=== PATIENT | female | born 1955 | race Caucasian/White ===

== ENCOUNTER 2016-08-16 15:46 | Emergency (ER) | payer OTHER ==
[~2016-08-16] VITALS: Ht 162.6 cm; Wt 113.6 kg
[~2016-08-16 15:46] MED LIST: ACET-2902 PO; BISA10S PR; CARB200T6 PO; DSS100 PO; FAMO20 PO; HEP5KI SQ; HYDR-3965 PO; LACO50TA2 PO; LEVE250T55 PO; LEVO100T13 PO; LEVO25VI4 IV; LEVO750P3 IV; LORA2I IM; MOM30 PO; MORP2CAR IV; ONDA22I IVP; OXYB5XL PO; PANT40TA25 PO; QUET25TA PO; VANC1IV IV; ZOLP5 PO
[2016-08-16 16:28] VITALS: BP 134/94
[2016-08-16 16:31] LABS: GLUCOSE,POINT OF CARE 152 MG/DL (70-110)
[2016-08-16 16:35] LABS: BASOPHILS % (AUTO) 0.2 % (0.0-2.0); EOSINOPHILS % (AUTO) 0.4 % (1.0-6.0); HEMATOCRIT 37.3 % (36-46); HEMOGLOBIN 12.2 g/dL (12.0-16.0); LYMPHOCYTES # (AUTO) 2.2 K/uL (1.0-4.8); LYMPHOCYTES % (AUTO) 19.9 % (22.0-44.0); MEAN CORPUSCULAR HEMOGLOBIN 28.1 pg (26.0-34.0); MEAN CORPUSCULAR HGB CONC 32.6 G/dL (31.0-37.0); MEAN CORPUSCULAR VOLUME 86 fL (80-100); MONOCYTES # (AUTO) 0.9 K/uL (0.1-1.0); NEUTROPHILS # (AUTO) 7.9 K/uL (1.8-7.7); NEUTROPHILS % (AUTO) 71.5 % (40.0-70.0); PLATELET COUNT (AUTO) 256 K/uL (150-450); RED BLOOD CELL COUNT(AUTO) 4.32 MIL/uL (4.00-5.20); RED CELL DISTRIBUTION WIDTH 13.4 % (11.5-14.5); WHITE BLOOD COUNT (AUTO) 11.1 K/uL (4.5-11.0)
[2016-08-16 16:39] LABS: ANION GAP 8 mmol/L (8-16); CALCIUM, TOTAL 8.8 mg/dL (8.8-10.5); CARBON DIOXIDE 29 mmol/L (22-29); CHLORIDE 103 mmol/L (98-107); GLOMERULAR FILTR. RATE CALC > 60 mL/min (>60); POTASSIUM 3.8 mmol/L (3.5-5.1); SODIUM SERUM 140 mmol/L (136-145); UREA NITROGEN, BLOOD 12 mg/dL (7-18)
[2016-08-16 16:44] LABS: ALANINE AMINOTRANSFERASE 18 U/L (12-78); ALBUMIN 3.2 g/dL (3.4-5.0); ASPARTATE AMINOTRANSFERASE 11 U/L (15-37); BILIRUBIN,TOTAL 0.1 mg/dL (0.1-1.0); TOTAL PROTEIN, SERUM 7.8 g/dL (6.4-8.2)
[2016-08-16] MEDS ORDERED: LevETIRAcetam 500 MG TABLET PO ONE (17:00)
== END 2016-08-16 19:01 | disposition home or self-care (01) ==
LOC: EDBD → EMS 15:47
DX: G40.909 Epilepsy, unspecified, not intractable, without status epilepticus (principal); E78.00 Pure hypercholesterolemia, unspecified; E03.9 Hypothyroidism, unspecified
CPT/HCPCS: 82948; 82962; 99285

== ENCOUNTER 2016-08-16 20:49 | Emergency (ER) | payer OTHER ==
[~2016-08-16] VITALS: Ht 157.5 cm; Wt 118.2 kg
[2016-08-16 23:22] VITALS: BP 136/81
== END 2016-08-16 23:39 | disposition home or self-care (01) ==
LOC: EDBD → EMS 20:53
DX: S01.81XA Laceration without foreign body of other part of head, initial encounter (principal); E78.00 Pure hypercholesterolemia, unspecified; E03.9 Hypothyroidism, unspecified; W18.09XA Striking against other object with subsequent fall, initial encounter; Y93.89 Activity, other specified; Y92.89 Other specified places as the place of occurrence of the external cause; Y99.8 Other external cause status
CPT/HCPCS: 12001; 70450; 99284

== ENCOUNTER 2016-08-17 09:05 | Emergency (ER) | payer OTHER ==
[~2016-08-17] VITALS: Ht 170.2 cm; Wt 136.4 kg
[~2016-08-17 09:05] MED LIST changes: -LEVO25VI4 IV
[2016-08-17 09:26] LABS: GLUCOSE,POINT OF CARE 159 MG/DL (70-110)
[2016-08-17] MEDS ORDERED: SODIUM CHLORIDE 0.9% 1,000 ML IV ONE (09:30)
[2016-08-17 10:07] LABS: EOSINOPHILS % (AUTO) 0 % (1.0-6.0); HEMATOCRIT 37.1 % (36-46); LYMPHOCYTES % (AUTO) 8.9 % (22.0-44.0); MEAN CORPUSCULAR HGB CONC 32.5 G/dL (31.0-37.0); MEAN CORPUSCULAR VOLUME 86 fL (80-100); MONOCYTES # (AUTO) 0.5 K/uL (0.1-1.0); MONOCYTES % (AUTO) 5.1 % (2.0-9.0); NEUTROPHILS # (AUTO) 9.2 K/uL (1.8-7.7); PLATELET COUNT (AUTO) 257 K/uL (150-450); RED CELL DISTRIBUTION WIDTH 13.5 % (11.5-14.5); WHITE BLOOD COUNT (AUTO) 10.7 K/uL (4.5-11.0)
[2016-08-17 10:17] LABS: ANION GAP 14 mmol/L (8-16); CALCIUM, TOTAL 8.8 mg/dL (8.8-10.5); CARBON DIOXIDE 24 mmol/L (22-29); CHLORIDE 104 mmol/L (98-107); CREATININE 0.79 mg/dL (0.60-1.30); GLOMERULAR FILTR. RATE CALC > 60 mL/min (>60); POTASSIUM 4.3 mmol/L (3.5-5.1); SODIUM SERUM 142 mmol/L (136-145); UREA NITROGEN, BLOOD 12 mg/dL (7-18)
[2016-08-17 10:23] LABS: ALANINE AMINOTRANSFERASE 19 U/L (12-78); ALBUMIN 3.4 g/dL (3.4-5.0); ASPARTATE AMINOTRANSFERASE 14 U/L (15-37); BILIRUBIN,TOTAL 0.2 mg/dL (0.1-1.0); TOTAL PROTEIN, SERUM 7.4 g/dL (6.4-8.2)
[2016-08-17 10:59] LABS: RBC MORPHOLOGY COMMENT NORMAL RBC MORPH
[2016-08-17] MEDS ORDERED: LevETIRAcetam 500 MG in DEXTROSE 5%-WATER 100 ML IV ONE (12:45)
[2016-08-17 14:14] VITALS: BP 132/65
== END 2016-08-17 15:24 | disposition home or self-care (01) ==
LOC: EDBD 09:07 → EMS 09:07
DX: G40.909 Epilepsy, unspecified, not intractable, without status epilepticus (principal); S00.81XA Abrasion of other part of head, initial encounter; E03.9 Hypothyroidism, unspecified; E78.00 Pure hypercholesterolemia, unspecified; W18.39XA Other fall on same level, initial encounter; Y93.89 Activity, other specified; Y92.89 Other specified places as the place of occurrence of the external cause; Y99.8 Other external cause status
CPT/HCPCS: 36415; 70450; 70486; 72125; 80053; 80307; 82948; 82962; 83690; 84484; 85025; 96360; 96365; 99285; G0480; J0712; J7030; J7060

== ENCOUNTER 2016-08-17 17:33 | Inpatient (IN) | payer OTHER ==
[~2016-08-17] VITALS: Ht 162.6 cm; Wt 119.1 kg
[2016-08-17] MEDS ORDERED: LORazepam 2 MG/ML VIAL IM ONE ×2 (20:00→22:45)
[2016-08-17] MEDS ORDERED: LevETIRAcetam 1,000 MG in DEXTROSE 5%-WATER 100 ML IV ONE (22:00)
[2016-08-17 22:28] LABS: ANION GAP 14 mmol/L (8-16); CARBON DIOXIDE 22 mmol/L (22-29); CHLORIDE 105 mmol/L (98-107); CREATININE 0.75 mg/dL (0.60-1.30); GLOMERULAR FILTR. RATE CALC > 60 mL/min (>60); SODIUM SERUM 141 mmol/L (136-145); UREA NITROGEN, BLOOD 14 mg/dL (7-18)
[2016-08-17 22:32] LABS: BASOPHILS % (AUTO) 0.5 % (0.0-2.0); EOSINOPHILS % (AUTO) 0.1 % (1.0-6.0); HEMOGLOBIN 11.6 g/dL (12.0-16.0); LYMPHOCYTES # (AUTO) 3.5 K/uL (1.0-4.8); MEAN CORPUSCULAR HEMOGLOBIN 27.8 pg (26.0-34.0); MEAN CORPUSCULAR HGB CONC 32.1 G/dL (31.0-37.0); MEAN CORPUSCULAR VOLUME 87 fL (80-100); MONOCYTES # (AUTO) 1.1 K/uL (0.1-1.0); MONOCYTES % (AUTO) 7.8 % (2.0-9.0); NEUTROPHILS % (AUTO) 67.6 % (40.0-70.0); PLATELET COUNT (AUTO) 294 K/uL (150-450); RED BLOOD CELL COUNT(AUTO) 4.15 MIL/uL (4.00-5.20); RED CELL DISTRIBUTION WIDTH 13.4 % (11.5-14.5); WHITE BLOOD COUNT (AUTO) 14.8 K/uL (4.5-11.0)
[2016-08-17 22:34] LABS: ALANINE AMINOTRANSFERASE 18 U/L (12-78); ALBUMIN 3.2 g/dL (3.4-5.0); ASPARTATE AMINOTRANSFERASE 18 U/L (15-37); BILIRUBIN,TOTAL 0.1 mg/dL (0.1-1.0); TOTAL PROTEIN, SERUM 7.8 g/dL (6.4-8.2)
[2016-08-17] MEDS ORDERED: DIAZEPAM 5 MG/ML 2 ML SYRINGE IVP ONE (22:45)
[2016-08-17] MEDS ORDERED: ACETAMINOPHEN 325 MG TABLET PO PRN (23:45)
[2016-08-17] MEDS ORDERED: MAGNESIUM HYDROXIDE SUSPENSION 30 ML UDCUP PO PRN (23:45)
[2016-08-17] MEDS ORDERED: ONDANSETRON HCL 4 MG/2 ML VIAL IVP PRN (23:45)
[2016-08-17] MEDS ORDERED: OxyCODONE HCL/ACETAMINOPHEN 5-325 MG TABLET PO PRN (23:45)
[2016-08-17] MEDS ORDERED: BISACODYL 10 MG RECTAL RECTAL SUPPOSITORY PR PRN (23:45)
[2016-08-18] MEDS: HEPARIN SODIUM,PORCINE 5,000 UNITS/ML VIAL SQ SCH ×3 (00:23→16:20)
[2016-08-18] MEDS ORDERED: DIAZEPAM 5 MG/ML 2 ML SYRINGE IVP ONE (07:00)
[2016-08-18] MEDS: PANTOPRAZOLE SODIUM 40 MG DR TABLET PO SCH (08:39)
[2016-08-18 17:06] LABS: GLUCOSE,POINT OF CARE 102 MG/DL (70-110)
[2016-08-18] MEDS ORDERED: 0.9% SODIUM CHLORIDE 10 ML SYRINGE IVP PRN (17:45)
[2016-08-18 17:49] VITALS: BP 105/75
[2016-08-18 19:20] VITALS: BP 126/63
[2016-08-18 21:45] VITALS: BP 136/60
[2016-08-18] MEDS: LORazepam 2 MG/ML VIAL IVP PRN (21:53)
[2016-08-18] MEDS ORDERED: LevETIRAcetam 1,000 MG in DEXTROSE 5%-WATER 100 ML IV ONE (22:00)
[2016-08-18 23:55] VITALS: BP 116/61
[2016-08-19] MEDS: HEPARIN SODIUM,PORCINE 5,000 UNITS/ML VIAL SQ SCH ×4 (00:09→23:35)
[2016-08-19 04:07] VITALS: BP 102/50
[2016-08-19 08:08] VITALS: BP 117/57
[2016-08-19] MEDS: LevETIRAcetam 500 MG TABLET PO SCH ×2 (08:11→20:12)
[2016-08-19] MEDS: PANTOPRAZOLE SODIUM 40 MG DR TABLET PO SCH (08:11)
[2016-08-19 10:49] VITALS: BP 105/72
[2016-08-19 16:14] VITALS: BP 129/84
[2016-08-19 20:41] VITALS: BP 122/71
[2016-08-20] VITALS (7 sets, daily range): BP systolic 98–130; BP diastolic 58–86
[2016-08-20] MEDS: LORazepam 2 MG/ML VIAL IVP PRN (01:45)
[2016-08-20] MEDS: LevETIRAcetam 500 MG TABLET PO SCH ×2 (08:10→20:50)
[2016-08-20] MEDS: HEPARIN SODIUM,PORCINE 5,000 UNITS/ML VIAL SQ SCH ×3 (08:10→23:55)
[2016-08-20] MEDS: PANTOPRAZOLE SODIUM 40 MG DR TABLET PO SCH (08:11)
[2016-08-20] MEDS ORDERED: LEVE500T53 PO (10:18)
[2016-08-21 00:31] VITALS: BP 111/63
[2016-08-21 04:39] VITALS: BP 124/64
[2016-08-21 07:04] VITALS: BP 101/65
[2016-08-21] MEDS: PANTOPRAZOLE SODIUM 40 MG DR TABLET PO SCH (08:27)
[2016-08-21] MEDS: LevETIRAcetam 500 MG TABLET PO SCH (08:27)
[2016-08-21] MEDS: HEPARIN SODIUM,PORCINE 5,000 UNITS/ML VIAL SQ SCH (08:27)
[2016-08-21 10:45] VITALS: BP 108/67
== END 2016-08-21 11:45 | disposition home or self-care (01) | DRG 53 ==
LOC: EMS 17:36 → 5N 08-18 16:53
PROVIDERS: ADMIT Hospitalist; ATTEND Hospitalist
PROC: 4A10X4Z Monitoring of Central Nervous Electrical Activity, External Approach (ICD-10-PCS; principal; 2016-08-20)
DX: G40.401 Other generalized epilepsy and epileptic syndromes, not intractable, with status epilepticus (principal); E44.1 Mild protein-calorie malnutrition; I10 Essential (primary) hypertension; Z68.42 Body mass index [BMI] 45.0-49.9, adult; E03.9 Hypothyroidism, unspecified; S00.81XA Abrasion of other part of head, initial encounter; E66.9 Obesity, unspecified; E78.5 Hyperlipidemia, unspecified; Z90.710 Acquired absence of both cervix and uterus; Z98.890 Other specified postprocedural states; Z78.1 Physical restraint status; X58.XXXA Exposure to other specified factors, initial encounter; Y93.89 Activity, other specified; Y92.89 Other specified places as the place of occurrence of the external cause; Y99.8 Other external cause status
CPT/HCPCS: 51702; 82962; 93005; 95816; 96365; 96366; 96372; 96375; 99285; J0712; J1644; J2060; J7060

== ENCOUNTER 2016-09-09 07:17 | Inpatient (IN) | payer OTHER ==
[~2016-09-09] VITALS: Ht 152.4 cm; Wt 119.2 kg
[~2016-09-09 07:17] MED LIST changes: -ACET-2902 PO; -BISA10S PR; -CARB200T6 PO; -DSS100 PO; -FAMO20 PO; -HEP5KI SQ; -HYDR-3965 PO; -LACO50TA2 PO; -LEVE250T55 PO; +LEVE500T53 PO; -LEVO100T13 PO; -LEVO750P3 IV; -LORA2I IM; -MOM30 PO; -MORP2CAR IV; -ONDA22I IVP; -OXYB5XL PO; -PANT40TA25 PO; -QUET25TA PO; -VANC1IV IV; -ZOLP5 PO
[2016-09-09] MEDS ORDERED: LORazepam 2 MG/ML VIAL IVP ONE ×2 (08:00→10:00)
[2016-09-09] MEDS ORDERED: LevETIRAcetam 750 MG in DEXTROSE 5%-WATER 100 ML IV ONE (08:00)
[2016-09-09] MEDS ORDERED: LORazepam 2 MG/ML VIAL IM ONE (10:15)
[2016-09-09] MEDS ORDERED: PHENobarbital SODIUM 65 MG/ML VIAL IVP ONE (11:45)
[2016-09-09] MEDS ORDERED: LevETIRAcetam 500 MG in DEXTROSE 5%-WATER 100 ML IV ONE ×2 (11:45→12:30)
[2016-09-09 12:17] LABS: BASOPHILS % (AUTO) 0.3 % (0.0-2.0); EOSINOPHILS % (AUTO) 0.1 % (1.0-6.0); HEMATOCRIT 37.3 % (36-46); HEMOGLOBIN 11.8 g/dL (12.0-16.0); LYMPHOCYTES # (AUTO) 1.2 K/uL (1.0-4.8); LYMPHOCYTES % (AUTO) 14.5 % (22.0-44.0); MEAN CORPUSCULAR HEMOGLOBIN 27.5 pg (26.0-34.0); MEAN CORPUSCULAR HGB CONC 31.7 G/dL (31.0-37.0); MEAN CORPUSCULAR VOLUME 87 fL (80-100); MONOCYTES # (AUTO) 0.3 K/uL (0.1-1.0); MONOCYTES % (AUTO) 2.9 % (2.0-9.0); NEUTROPHILS % (AUTO) 82.2 % (40.0-70.0); PLATELET COUNT (AUTO) 257 K/uL (150-450); RED CELL DISTRIBUTION WIDTH 13.9 % (11.5-14.5)
[2016-09-09 12:18] LABS: WHITE BLOOD COUNT (AUTO) 12.7 K/uL (4.5-11.0)
[2016-09-09 12:41] LABS: RBC MORPHOLOGY COMMENT NORMAL RBC MORPH
[2016-09-09 13:00] LABS: ANION GAP 13 mmol/L (8-16); CALCIUM, TOTAL 8.7 mg/dL (8.8-10.5); CARBON DIOXIDE 23 mmol/L (22-29); CHLORIDE 104 mmol/L (98-107); CREATININE 0.87 mg/dL (0.60-1.30); GLOMERULAR FILTR. RATE CALC > 60 mL/min (>60); POTASSIUM 4.5 mmol/L (3.5-5.1); SODIUM SERUM 140 mmol/L (136-145); UREA NITROGEN, BLOOD 10 mg/dL (7-18)
[2016-09-09] MEDS ORDERED: PHENYTOIN SODIUM 1,000 MG in SODIUM CHLORIDE 0.9% 150 ML IV ONE (13:00)
[2016-09-09 13:06] LABS: ALANINE AMINOTRANSFERASE 25 U/L (12-78); ALBUMIN 3.3 g/dL (3.4-5.0); ASPARTATE AMINOTRANSFERASE 23 U/L (15-37); BILIRUBIN,TOTAL 0.3 mg/dL (0.1-1.0); TOTAL PROTEIN, SERUM 7.5 g/dL (6.4-8.2)
[2016-09-09 16:23] LABS: ADD UA MICROSCOPIC YES; APPEARANCE,URINE CLEAR (CLEAR); GLUCOSE, URINE (UA) NEGATIVE (NEGATIVE); KETONES,URINE NEGATIVE (NEGATIVE); LEUKOCYTE ESTERASE ,URINE NEGATIVE (NEGATIVE); OCCULT BLOOD,URINE SMALL (NEGATIVE); PH,URINE 5.5 (5.0-8.0); PROTEIN,URINE POS 1+ (NEGATIVE)
[2016-09-09 16:27] LABS: SQUAMOUS EPITHELIAL CELL,UR Few /LPF (None Seen)
[2016-09-09 16:28] LABS: HYALINE CASTS, URINE 0-2 /LPF (None Seen)
[2016-09-09 16:30] LABS: WBC,URINE 0-2 /HPF (0-5)
[2016-09-09] MEDS ORDERED: ACETAMINOPHEN 1000 MG/ISO-OSM 100 ML IV ONE (19:00)
[2016-09-09 22:08] VITALS: BP 113/61
[2016-09-09] MEDS ORDERED: HYDROCODONE/ACETAMINOPHEN 5-325 MG TABLET PO PRN (22:15)
[2016-09-09] MEDS ORDERED: MAGNESIUM HYDROXIDE SUSPENSION 30 ML UDCUP PO PRN (22:15)
[2016-09-09] MEDS ORDERED: ALBUTEROL SULFATE 2.5 MG/0.5 ML NEB SOLUTION NEB PRN (22:15)
[2016-09-09] MEDS ORDERED: ZOLPIDEM TARTRATE 5 MG TABLET PO PRN (22:15)
[2016-09-09] MEDS ORDERED: BISACODYL 10 MG RECTAL RECTAL SUPPOSITORY PR PRN (22:15)
[2016-09-09] MEDS ORDERED: IPRATROPIUM BROMIDE 0.5 MG/2.5 ML NEB SOLUTION NEB PRN (22:15)
[2016-09-09] MEDS ORDERED: ACETAMINOPHEN 325 MG TABLET PO PRN (22:15)
[2016-09-09] MEDS ORDERED: ONDANSETRON HCL 4 MG/2 ML VIAL IVP PRN (22:15)
[2016-09-09] MEDS ORDERED: MORPHINE SULFATE 2 MG/ML SYRINGE IVP PRN (22:30)
[2016-09-09] MEDS: HEPARIN SODIUM,PORCINE 5,000 UNITS/ML VIAL SQ SCH (23:50)
[2016-09-10] VITALS (7 sets, daily range): BP systolic 100–139; BP diastolic 52–72
[2016-09-10] MEDS: PANTOPRAZOLE SODIUM 40 MG/VIAL IVP SCH (08:08)
[2016-09-10] MEDS: HEPARIN SODIUM,PORCINE 5,000 UNITS/ML VIAL SQ SCH ×3 (08:08→23:08)
[2016-09-10] MEDS: LevETIRAcetam 500 MG TABLET PO SCH ×2 (08:09→20:23)
[2016-09-10] MEDS: DOCUSATE SODIUM 100 MG CAPSULE PO SCH ×2 (08:09→20:23)
[2016-09-10] MEDS: LORazepam 2 MG/ML VIAL IVP PRN (22:43)
[2016-09-11] VITALS (7 sets, daily range): BP systolic 100–115; BP diastolic 47–71
[2016-09-11] MEDS: LORazepam 2 MG/ML VIAL IVP PRN (02:57)
[2016-09-11] MEDS: PANTOPRAZOLE SODIUM 40 MG/VIAL IVP SCH (08:38)
[2016-09-11] MEDS: DOCUSATE SODIUM 100 MG CAPSULE PO SCH ×2 (08:40→20:27)
[2016-09-11] MEDS: HEPARIN SODIUM,PORCINE 5,000 UNITS/ML VIAL SQ SCH ×2 (08:40→15:28)
[2016-09-11] MEDS: LevETIRAcetam 500 MG TABLET PO SCH ×2 (09:38→20:27)
[2016-09-11] MEDS: CarBAMazepine 200 MG TABLET PO SCH ×2 (11:46→20:27)
[2016-09-12] MEDS: HEPARIN SODIUM,PORCINE 5,000 UNITS/ML VIAL SQ SCH ×2 (00:13→08:13)
[2016-09-12 04:36] VITALS: BP 119/75
[2016-09-12 07:36] VITALS: BP 109/68
[2016-09-12] MEDS: LevETIRAcetam 500 MG TABLET PO SCH (08:12)
[2016-09-12] MEDS: PANTOPRAZOLE SODIUM 40 MG/VIAL IVP SCH (08:12)
[2016-09-12] MEDS: DOCUSATE SODIUM 100 MG CAPSULE PO SCH (08:12)
[2016-09-12] MEDS: CarBAMazepine 200 MG TABLET PO SCH (08:12)
[2016-09-12 11:26] VITALS: BP 109/68
[2016-09-12] MEDS ORDERED: FAMO20 PO (13:39)
[2016-09-12] MEDS ORDERED: OS500 PO (13:39)
[2016-09-12] MEDS ORDERED: CARB100 PO (13:39)
[2016-09-12] MEDS ORDERED: LACO100 PO (13:45)
== END 2016-09-12 15:50 | disposition home or self-care (01) | DRG 53 ==
LOC: EMS 07:19 → 5N 19:04 → UNDOADMIN 19:04 → 5N 19:05 → UNDOADMIN 19:05
PROVIDERS: ADMIT Hospitalist; ATTEND Hospitalist
DX: G40.901 Epilepsy, unspecified, not intractable, with status epilepticus (principal); E44.1 Mild protein-calorie malnutrition; Z68.43 Body mass index [BMI] 50.0-59.9, adult; E03.9 Hypothyroidism, unspecified; D72.829 Elevated white blood cell count, unspecified; E78.00 Pure hypercholesterolemia, unspecified; E66.9 Obesity, unspecified; E78.5 Hyperlipidemia, unspecified; Z79.899 Other long term (current) drug therapy; Z90.710 Acquired absence of both cervix and uterus; Z91.19 Patient's noncompliance with other medical treatment and regimen; Z98.890 Other specified postprocedural states
CPT/HCPCS: 70450; 87081; 96365; 96366; 96367; 96372; 96375; 99285; C9113; J0131; J0712; J1165; J1644; J2060; J2405; J2560; J7050; J7060

== ENCOUNTER 2016-09-14 15:45 | Inpatient (IN) | payer OTHER ==
[~2016-09-14] VITALS: Ht 162.6 cm; Wt 119.6 kg
[~2016-09-14 15:45] MED LIST changes: +CARB100 PO; +FAMO20 PO; +LACO100 PO; +OS500 PO
[2016-09-14 19:11] LABS: BASOPHILS # (AUTO) 0.09 K/uL (0.00-0.20); BASOPHILS % (AUTO) 1.1 % (0.0-2.0); EOSINOPHILS # (AUTO) 0.12 K/uL (0.00-0.70); EOSINOPHILS % (AUTO) 1.38 % (1.0-6.0); HEMATOCRIT 41.6 % (36-46); LYMPHOCYTES # (AUTO) 2.1 K/uL (1.0-4.8); LYMPHOCYTES % (AUTO) 24.8 % (22.0-44.0); MEAN CORPUSCULAR HEMOGLOBIN 28.7 pg (26.0-34.0); MEAN CORPUSCULAR HGB CONC 33.6 G/dL (31.0-37.0); MEAN CORPUSCULAR VOLUME 85 fL (80-100); MONOCYTES # (AUTO) 0.4 K/uL (0.1-1.0); MONOCYTES % (AUTO) 4.6 % (2.0-9.0); NEUTROPHILS # (AUTO) 5.8 K/uL (1.8-7.7); NEUTROPHILS % (AUTO) 68.1 % (40.0-70.0); RED BLOOD CELL COUNT(AUTO) 4.89 MIL/uL (4.00-5.20); RED CELL DISTRIBUTION WIDTH 14.8 % (11.5-14.5)
[2016-09-14 19:14] LABS: WHITE BLOOD COUNT (AUTO) 12.4 K/uL (4.5-11.0)
[2016-09-14 19:26] LABS: ANION GAP 11 mmol/L (8-16); CALCIUM, TOTAL 9.7 mg/dL (8.8-10.5); CARBON DIOXIDE 27 mmol/L (22-29); CHLORIDE 101 mmol/L (98-107); CREATININE 0.73 mg/dL (0.60-1.30); GLOMERULAR FILTR. RATE CALC > 60 mL/min (>60); SODIUM SERUM 139 mmol/L (136-145); UREA NITROGEN, BLOOD 16 mg/dL (7-18)
[2016-09-14] MEDS ORDERED: MIDAZOLAM HCL 5 MG/ML VIAL IVP ONE (19:30)
[2016-09-14 19:32] LABS: PLATELET COUNT (AUTO) 175 K/uL (150-450)
[2016-09-14 19:33] LABS: ALANINE AMINOTRANSFERASE 32 U/L (12-78); ALBUMIN 3.7 g/dL (3.4-5.0); ASPARTATE AMINOTRANSFERASE 25 U/L (15-37); BILIRUBIN,TOTAL 0.2 mg/dL (0.1-1.0); RBC MORPHOLOGY COMMENT NORMAL RBC MORPH; TOTAL PROTEIN, SERUM 8.4 g/dL (6.4-8.2)
[2016-09-14 21:24] LABS: APPEARANCE,URINE CLOUDY (CLEAR); GLUCOSE, URINE (UA) NEGATIVE (NEGATIVE); KETONES,URINE NEGATIVE (NEGATIVE); LEUKOCYTE ESTERASE ,URINE MODERATE (NEGATIVE); OCCULT BLOOD,URINE SMALL (NEGATIVE); PROTEIN,URINE TRACE (NEGATIVE)
[2016-09-14 21:33] LABS: SQUAMOUS EPITHELIAL CELL,UR Many /LPF (None Seen); WBC,URINE 26-50 /HPF (0-5)
[2016-09-14] MEDS ORDERED: FUROSEMIDE 20 MG/2 ML VIAL IVP ONE (22:15)
[2016-09-14] MEDS ORDERED: FUROSEMIDE 40 MG/4 ML VIAL IVP ONE (22:15)
[2016-09-14] MEDS ORDERED: OxyCODONE HCL/ACETAMINOPHEN 5-325 MG TABLET PO PRN (22:30)
[2016-09-14] MEDS ORDERED: ZOLPIDEM TARTRATE 10 MG TABLET PO PRN (22:30)
[2016-09-14] MEDS ORDERED: ONDANSETRON HCL 4 MG/2 ML VIAL IVP PRN (22:30)
[2016-09-14 23:31] VITALS: BP 108/64
[2016-09-15] MEDS ORDERED: SODIUM CHLORIDE 0.9% 100 ML ONE (00:32)
[2016-09-15] MEDS: LEVOFLOXACIN 500 MG/D5% WATER 100 ML IV SCH ×2 (00:38→23:00)
[2016-09-15] MEDS: HEPARIN SODIUM,PORCINE 5,000 UNITS/ML VIAL SQ SCH ×3 (00:38→16:05)
[2016-09-15] MEDS ORDERED: SODIUM CHLORIDE 0.9% 500 ML IV ONE (00:51)
[2016-09-15 04:56] VITALS: BP 110/60
[2016-09-15] MEDS ORDERED: LORazepam 2 MG/ML VIAL IVP PRN (05:15)
[2016-09-15] MEDS: LEVOTHYROXINE SODIUM 100 MCG TABLET PO SCH (05:52)
[2016-09-15 08:18] LABS: ALANINE AMINOTRANSFERASE 26 U/L (12-78); ALBUMIN 3.3 g/dL (3.4-5.0); ANION GAP 9 mmol/L (8-16); ASPARTATE AMINOTRANSFERASE 22 U/L (15-37); BILIRUBIN,TOTAL 0.4 mg/dL (0.1-1.0); CALCIUM, TOTAL 8.7 mg/dL (8.8-10.5); CARBON DIOXIDE 27 mmol/L (22-29); CHLORIDE 103 mmol/L (98-107); CREATININE 0.67 mg/dL (0.60-1.30); GLOMERULAR FILTR. RATE CALC > 60 mL/min (>60); POTASSIUM 4.5 mmol/L (3.5-5.1); SODIUM SERUM 139 mmol/L (136-145); THYROID STIMULATING HORMONE 0.89 uIU/mL (0.36-3.74); TOTAL PROTEIN, SERUM 7.4 g/dL (6.4-8.2); UREA NITROGEN, BLOOD 14 mg/dL (7-18)
[2016-09-15 08:35] VITALS: BP 101/55
[2016-09-15 09:05] LABS: BASOPHILS # (AUTO) 0.06 K/uL (0.00-0.20); BASOPHILS % (AUTO) 0.7 % (0.0-2.0); EOSINOPHILS # (AUTO) 0.09 K/uL (0.00-0.70); EOSINOPHILS % (AUTO) 1.01 % (1.0-6.0); HEMATOCRIT 36.7 % (36-46); LYMPHOCYTES # (AUTO) 2.5 K/uL (1.0-4.8); LYMPHOCYTES % (AUTO) 27.1 % (22.0-44.0); MEAN CORPUSCULAR HGB CONC 32.7 G/dL (31.0-37.0); MEAN CORPUSCULAR VOLUME 86 fL (80-100); MONOCYTES # (AUTO) 0.7 K/uL (0.1-1.0); MONOCYTES % (AUTO) 6.9 % (2.0-9.0); NEUTROPHILS % (AUTO) 64.4 % (40.0-70.0); PLATELET COUNT (AUTO) 206 K/uL (150-450); RED BLOOD CELL COUNT(AUTO) 4.29 MIL/uL (4.00-5.20); RED CELL DISTRIBUTION WIDTH 14.6 % (11.5-14.5); WHITE BLOOD COUNT (AUTO) 9.4 K/uL (4.5-11.0)
[2016-09-15] MEDS: LevETIRAcetam 500 MG TABLET PO SCH ×2 (09:11→20:57)
[2016-09-15] MEDS: LACOSAMIDE 100 MG TABLET PO SCH ×2 (09:11→20:57)
[2016-09-15] MEDS: PANTOPRAZOLE SODIUM 40 MG DR TABLET PO SCH (09:12)
[2016-09-15] MEDS: CarBAMazepine 100 MG CHEWABLE TABLET PO SCH ×4 (09:12→20:57)
[2016-09-15 11:08] VITALS: BP 110/62
[2016-09-15 15:15] VITALS: BP 124/72
[2016-09-15 20:13] VITALS: BP 128/70
[2016-09-16] VITALS (7 sets, daily range): BP systolic 98–148; BP diastolic 58–73
[2016-09-16] MEDS: HEPARIN SODIUM,PORCINE 5,000 UNITS/ML VIAL SQ SCH ×3 (00:34→17:34)
[2016-09-16] MEDS: LEVOTHYROXINE SODIUM 100 MCG TABLET PO SCH (06:27)
[2016-09-16 08:42] LABS: BASOPHILS % (AUTO) 0.4 % (0.0-2.0); EOSINOPHILS % (AUTO) 1.4 % (1.0-6.0); HEMATOCRIT 37.6 % (36-46); HEMOGLOBIN 12.3 g/dL (12.0-16.0); LYMPHOCYTES # (AUTO) 1.6 K/uL (1.0-4.8); LYMPHOCYTES % (AUTO) 29.8 % (22.0-44.0); MEAN CORPUSCULAR HEMOGLOBIN 28.3 pg (26.0-34.0); MEAN CORPUSCULAR HGB CONC 32.6 G/dL (31.0-37.0); MEAN CORPUSCULAR VOLUME 87 fL (80-100); MONOCYTES # (AUTO) 0.5 K/uL (0.1-1.0); MONOCYTES % (AUTO) 9.2 % (2.0-9.0); NEUTROPHILS # (AUTO) 3.1 K/uL (1.8-7.7); NEUTROPHILS % (AUTO) 59.2 % (40.0-70.0); PLATELET COUNT (AUTO) 246 K/uL (150-450); RED BLOOD CELL COUNT(AUTO) 4.34 MIL/uL (4.00-5.20); RED CELL DISTRIBUTION WIDTH 14.6 % (11.5-14.5); WHITE BLOOD COUNT (AUTO) 5.3 K/uL (4.5-11.0)
[2016-09-16 09:11] LABS: ALANINE AMINOTRANSFERASE 24 U/L (12-78); ALBUMIN 3.2 g/dL (3.4-5.0); ANION GAP 9 mmol/L (8-16); ASPARTATE AMINOTRANSFERASE 15 U/L (15-37); BILIRUBIN,TOTAL 0.3 mg/dL (0.1-1.0); CALCIUM, TOTAL 8.7 mg/dL (8.8-10.5); CARBON DIOXIDE 27 mmol/L (22-29); CHLORIDE 104 mmol/L (98-107); CREATININE 0.69 mg/dL (0.60-1.30); GLOMERULAR FILTR. RATE CALC > 60 mL/min (>60); SODIUM SERUM 140 mmol/L (136-145); TOTAL PROTEIN, SERUM 7.3 g/dL (6.4-8.2); UREA NITROGEN, BLOOD 14 mg/dL (7-18)
[2016-09-16] MEDS: CarBAMazepine 100 MG CHEWABLE TABLET PO SCH ×4 (11:50→20:28)
[2016-09-16] MEDS: LevETIRAcetam 500 MG TABLET PO SCH ×2 (11:50→20:28)
[2016-09-16] MEDS: PANTOPRAZOLE SODIUM 40 MG DR TABLET PO SCH (11:50)
[2016-09-16] MEDS: LACOSAMIDE 100 MG TABLET PO SCH ×2 (11:51→20:28)
[2016-09-16] MEDS: LEVOFLOXACIN 500 MG/D5% WATER 100 ML IV SCH (23:00)
[2016-09-17 04:37] VITALS: BP 102/58
[2016-09-17] MEDS: LEVOTHYROXINE SODIUM 100 MCG TABLET PO SCH (05:48)
[2016-09-17] MEDS: ACETAMINOPHEN 325 MG TABLET PO PRN (07:13)
[2016-09-17 07:19] VITALS: BP 118/69
[2016-09-17] MEDS: LACOSAMIDE 100 MG TABLET PO SCH ×2 (08:52→20:08)
[2016-09-17] MEDS: PANTOPRAZOLE SODIUM 40 MG DR TABLET PO SCH (08:52)
[2016-09-17] MEDS: CarBAMazepine 100 MG CHEWABLE TABLET PO SCH ×4 (08:54→20:08)
[2016-09-17] MEDS: LevETIRAcetam 500 MG TABLET PO SCH ×2 (08:54→20:08)
[2016-09-17] MEDS: HEPARIN SODIUM,PORCINE 5,000 UNITS/ML VIAL SQ SCH ×4 (08:57→23:43)
[2016-09-17 10:18] LABS: ALANINE AMINOTRANSFERASE 21 U/L (12-78); ANION GAP 9 mmol/L (8-16); ASPARTATE AMINOTRANSFERASE 13 U/L (15-37); BILIRUBIN,TOTAL 0.2 mg/dL (0.1-1.0); CALCIUM, TOTAL 8.5 mg/dL (8.8-10.5); CARBON DIOXIDE 27 mmol/L (22-29); CHLORIDE 103 mmol/L (98-107); CREATININE 0.74 mg/dL (0.60-1.30); GLOMERULAR FILTR. RATE CALC > 60 mL/min (>60); POTASSIUM 3.9 mmol/L (3.5-5.1); SODIUM SERUM 139 mmol/L (136-145); UREA NITROGEN, BLOOD 13 mg/dL (7-18)
[2016-09-17 14:29] LABS: BASOPHILS % (AUTO) 0.4 % (0.0-2.0); EOSINOPHILS % (AUTO) 1.4 % (1.0-6.0); HEMATOCRIT 35.9 % (36-46); HEMOGLOBIN 11.2 g/dL (12.0-16.0); LYMPHOCYTES # (AUTO) 1.8 K/uL (1.0-4.8); LYMPHOCYTES % (AUTO) 27.5 % (22.0-44.0); MEAN CORPUSCULAR HEMOGLOBIN 27.3 pg (26.0-34.0); MEAN CORPUSCULAR HGB CONC 31.2 G/dL (31.0-37.0); MEAN CORPUSCULAR VOLUME 87 fL (80-100); MONOCYTES # (AUTO) 0.5 K/uL (0.1-1.0); MONOCYTES % (AUTO) 8.1 % (2.0-9.0); NEUTROPHILS % (AUTO) 62.6 % (40.0-70.0); PLATELET COUNT (AUTO) 217 K/uL (150-450); RED CELL DISTRIBUTION WIDTH 14.4 % (11.5-14.5); WHITE BLOOD COUNT (AUTO) 6.4 K/uL (4.5-11.0)
[2016-09-17 15:07] VITALS: BP 114/61
[2016-09-17 19:14] VITALS: BP 103/57
[2016-09-17 22:39] VITALS: BP 121/58
[2016-09-17] MEDS: LEVOFLOXACIN 500 MG/D5% WATER 100 ML IV SCH (23:00)
[2016-09-18 04:07] VITALS: BP 100/57
[2016-09-18] MEDS: LEVOTHYROXINE SODIUM 100 MCG TABLET PO SCH (05:48)
[2016-09-18] MEDS: ACETAMINOPHEN 325 MG TABLET PO PRN (05:51)
[2016-09-18 07:41] VITALS: BP 120/50
[2016-09-18] MEDS: CarBAMazepine 100 MG CHEWABLE TABLET PO SCH ×3 (08:08→16:19)
[2016-09-18] MEDS: PANTOPRAZOLE SODIUM 40 MG DR TABLET PO SCH (08:08)
[2016-09-18] MEDS: LevETIRAcetam 500 MG TABLET PO SCH (08:09)
[2016-09-18] MEDS: LACOSAMIDE 100 MG TABLET PO SCH (08:10)
[2016-09-18] MEDS: HEPARIN SODIUM,PORCINE 5,000 UNITS/ML VIAL SQ SCH ×2 (08:11→16:20)
[2016-09-18 09:03] LABS: BASOPHILS % (AUTO) 0.5 % (0.0-2.0); HEMATOCRIT 38.5 % (36-46); HEMOGLOBIN 12.3 g/dL (12.0-16.0); LYMPHOCYTES # (AUTO) 1.6 K/uL (1.0-4.8); MEAN CORPUSCULAR HGB CONC 31.9 G/dL (31.0-37.0); MEAN CORPUSCULAR VOLUME 88 fL (80-100); MONOCYTES # (AUTO) 0.5 K/uL (0.1-1.0); MONOCYTES % (AUTO) 8.3 % (2.0-9.0); NEUTROPHILS % (AUTO) 64.2 % (40.0-70.0); PLATELET COUNT (AUTO) 241 K/uL (150-450); RED BLOOD CELL COUNT(AUTO) 4.39 MIL/uL (4.00-5.20); RED CELL DISTRIBUTION WIDTH 14.4 % (11.5-14.5); WHITE BLOOD COUNT (AUTO) 6.3 K/uL (4.5-11.0)
[2016-09-18 09:09] LABS: ALANINE AMINOTRANSFERASE 21 U/L (12-78); ALBUMIN 3.3 g/dL (3.4-5.0); ANION GAP 9 mmol/L (8-16); ASPARTATE AMINOTRANSFERASE 9 U/L (15-37); BILIRUBIN,TOTAL 0.2 mg/dL (0.1-1.0); CALCIUM, TOTAL 8.8 mg/dL (8.8-10.5); CARBON DIOXIDE 27 mmol/L (22-29); CHLORIDE 103 mmol/L (98-107); CREATININE 0.69 mg/dL (0.60-1.30); GLOMERULAR FILTR. RATE CALC > 60 mL/min (>60); POTASSIUM 3.9 mmol/L (3.5-5.1); SODIUM SERUM 139 mmol/L (136-145); TOTAL PROTEIN, SERUM 7.6 g/dL (6.4-8.2); UREA NITROGEN, BLOOD 15 mg/dL (7-18)
[2016-09-18] MEDS ORDERED: LEVOFLOXACIN 500 MG TABLET PO SCH (09:45)
[2016-09-18 11:24] VITALS: BP_SYST 112; BP_SYST 117; BP_DIAS 46; BP_DIAS 58
[2016-09-18 15:05] VITALS: BP 111/53
[2016-09-18] MEDS ORDERED: LEVO100 PO (18:06)
[2016-09-18] MEDS ORDERED: PANT40TA25 PO (18:06)
[2016-09-18] MEDS ORDERED: LEVO500 PO (18:07)
== END 2016-09-18 19:25 | DRG 720 ==
LOC: EMS 15:50 → 5N 23:09
PROVIDERS: ADMIT Hospitalist; ATTEND Hospitalist
DX: A41.9 Sepsis, unspecified organism (principal); I50.33 Acute on chronic diastolic (congestive) heart failure; G93.41 Metabolic encephalopathy; E03.9 Hypothyroidism, unspecified; E78.00 Pure hypercholesterolemia, unspecified; Z60.2 Problems related to living alone; G40.909 Epilepsy, unspecified, not intractable, without status epilepticus; N39.0 Urinary tract infection, site not specified; Z95.0 Presence of cardiac pacemaker; Z79.899 Other long term (current) drug therapy; Z90.710 Acquired absence of both cervix and uterus; Z98.890 Other specified postprocedural states
CPT/HCPCS: 84443; 87086; 93005; 93306; 96374; 97161; 97530; 99285; G0480; J1644; J1940; J1956; J2250; J7040; J7050